=== PATIENT | female | born 1965 | race Caucasian/White ===

== ENCOUNTER 2020-06-30 15:31 | Outpatient (CLI) | payer MEDICARE, SELFPAY ==
--- NOTE | 2020-06-30 15:59 | USCV_ITS ---
Kandice Trujillo Age: 54 Gender: F : 1965 Exam Date: 06/30/2020 16:05 Ordering Phys: Kaiden Rust XX Technologist: Sona Shane [place] [facility] [place] LLE SWELLING HISTORY: Lower extremity swelling. PROCEDURES: Venous duplex imaging was performed in only the left lower extremity. The following venous structures were evaluated: common femoral vein, profunda vein, proximal portion of the greater saphenous vein, superficial femoral vein, and the popliteal vein. In addition, the posterior tibial and peroneal trunk were evaluated. Serial compression, augmentation maneuvers, and spectral Doppler flow evaluation were performed. FINDINGS: No evidence of DVT seen in any vessel visualized at this time. CONCLUSIONS No evidence of left lower extremity DVT. Duran De Leon MD (Electronically Signed) Final Date: 30 June 2020 17:30 S
== END 2020-06-30 15:32 | disposition home or self-care (01) ==
LOC: RAD 15:39
PROVIDERS: PCP Nurse Practitioner Family; Visit Provider Nurse Practitioner Family
DX: M79.89 Other specified soft tissue disorders (principal)
CPT/HCPCS: 93971

== ENCOUNTER → 2024-04-08 12:46 | Outpatient (BNVA) | payer MEDICARE, SELFPAY | PROVIDERS: PCP Nurse Practitioner Family; Visit Provider Internal Medicine Cardiovascular Disease | DX: R07.9 Chest pain, unspecified (principal); I45.10 Unspecified right bundle-branch block | CPT/HCPCS: 93005; 99203 ==

== ENCOUNTER → 2025-04-08 09:46 | Outpatient (BNVA) | payer MEDICARE, SELFPAY | PROVIDERS: PCP Nurse Practitioner Family; Visit Provider Internal Medicine Cardiovascular Disease | DX: I87.2 Venous insufficiency (chronic) (peripheral) (principal) | CPT/HCPCS: 99214 ==